=== PATIENT | female | born 1980 | race Caucasian/White ===

== ENCOUNTER 2016-05-08 09:55 | Emergency (ER) | payer SELFPAY ==
[2016-05-08] MEDS ORDERED: Ketorolac 30 MG/ML SDV IVPUSH ONE (10:16)
[2016-05-08] MEDS ORDERED: Ondansetron 4 MG/2 ML SDV IVPUSH ONE (10:16)
[2016-05-08] MEDS ORDERED: Sodium Chloride 0.9% 10 ML Syringe FLUSH PRN (10:16)
[2016-05-08] MEDS ORDERED: Sodium Chloride 0.9% 1,000 ML IV ONE (10:16)
[2016-05-08] MEDS ORDERED: Sodium Chloride 0.9% 2.5 ML Syringe FLUSH PRN (10:16)
[2016-05-08] MEDS ORDERED: Famotidine 20 MG/2 ML SDV IVPUSH ONE (10:16)
--- NOTE | 2016-05-08 10:20 | EDM.PDOC ---
ED HPI GENERAL MEDICAL PROBLEM - General Chief Complaint: Gastrointestinal Problem Stated Complaint: THROWING UP Time Seen by Provider: 05/08/16 10:06 - History of Present Illness INITIAL COMMENTS - FREE TEXT/NARRATIVE: HISTORY AND PHYSICAL: History of present illness: The patient is a 35-year-old female with no stated medical problems who presents with a one-month history of subjective fever chills bodyaches diarrhea and over the last one week has developed a cough with frothy sputum and posttussive vomiting with nausea. The patient has a primary care physician, Dr. Wells, but she has not seen him because of lack of insurance and money to pay for the visit. She denies any recent travel or new food exposures and did not get her influenza shot. She does not feel short of breath or chest pain but she does complain of profound bodyaches and pains throughout everywhere in her body. She has felt lightheaded intermittently and has been trying to hydrate but is mostly been drinking tea. She doesn't have specific abdominal pain but it 's more of a crampy-like sensation which comes and goes. SHe says her urine is very dark in color but there is no burning or pain or hematuria. Stools have been anywhere from 5-10 a day they're watery but did not black or bloody. Review of systems: As per history of present illness and below otherwise all systems reviewed and negative. Past medical history: As per history of present illness and as reviewed below otherwise noncontributory. Surgical history: As per history of present illness and as reviewed below otherwise noncontributory. Social history: No reported history of drug or alcohol abuse. Family history: As per history of present illness and as reviewed below otherwise noncontributory. Physical exam: General: Well-developed overweight female who is nontoxic and vital signs have been reviewed by me. HEENT: Atraumatic, normocephalic, pupils reactive, negative for conjunctival pallor or scleral icterus, mucous membranes tacky, throat clear, neck supple, nontender, trachea midline. Lungs: Clear to auscultation, breath sounds equal bilaterally, chest nontender. Slightly diminished in the bases but no work or breathing wheezing or stridor Heart: S1S2, regular rhythm and slightly tachycardic on my evaluation, negative for clicks, rubs, or JVD. Abdomen: Soft, nondistended, nontender. Negative for masses or hepatosplenomegaly. Negative for costovertebral tenderness. Pelvis: Stable nontender. Genitourinary: Deferred. Rectal: Deferred. Extremities: Atraumatic, negative for cords or calf pain. Neurovascular unremarkable. Neuro: Awake, alert, oriented. Cranial nerves II through XII unremarkable. Cerebellum unremarkable. Motor and sensory unremarkable throughout. Exam nonfocal. Diagnostics: CBC CMP UA urine culture if indicated influenza swab Monospot chest x-ray stool for culture Therapeutics: IV fluids Zofran Toradol Pepcid Please note that the patient is currently on her menstrual cycle which would explain the blood in her UA. All testing results were discussed with the patient and family at bedside and I strongly advise follow up with Dr. wells as etiology of her symptoms is unclear. I will give her an albuterol for the bronchitis and she feels better after IV fluids Impression: Bronchitis, generalized weakness and malaise etiology unclear, diarrhea Definitive disposition and diagnosis as appropriate pending reevaluation and review of above. - Related Data Allergies Allergy/AdvReac Type Severity Reaction Status Date / Time Fish Containing Products Allergy Anaphylactic Verified 05/08/16 10:05 Shock Latex, Natural Rubber Allergy Rash Verified 05/08/16 10:05 mushroom Allergy Airway Verified 05/08/16 10:05 Tightness onion Allergy Hives Verified 05/08/16 10:05 Home Meds: Home Meds . 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: Neurological History: Reports: Headaches, chronic Endocrine/Metabolic History: Reports: Obesity/BMI 30+ - Infectious Disease History Infectious Disease History: Reports: Chicken pox - Past Surgical History HEENT Surgical History: Reports: Adenoidectomy, Naso-sinus surgery, Tonsillectomy GI Surgical History: Reports: Cholecystectomy Female Surgical History: Reports: Tubal ligation Musculoskeletal Surgical History: Reports: Arthroscopic knee Social & Family History - Family History Family Medical History: Noncontributory - Tobacco Use Smoking Status *Q: Current Every Day Smoker Years of Tobacco use: 20 Packs/Tins Daily: 0.3 - Recreational Drug Use Recreational Drug Use: Yes Drug Use in Last 12 Months: Yes Recreational Drug Type: Reports: Marijuana/Hashish Recreational Drug Use Frequency: Socially Recreational Drug Last Use: 6 months ago - Living Situation & Occupation Living situation: Reports: (Has a .) 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 ED EXAM, GENERAL - Physical Exam Exam: See Below (See dictation) Course - Vital Signs Last Recorded V/S: Last Vital Signs Temp 36.2 C 05/08/16 10:03 Pulse 117 H 05/08/16 10:03 Resp 16 05/08/16 10:03 BP 123/84 05/08/16 10:03 Pulse Ox 93 L 05/08/16 10:03 - Orders/Labs/Meds Orders: Active Orders 24 hr Category Date Time Status CULTURE STOOL + CAMPY+SHIGATOX [RM] Stat Lab 05/08/16 10:45 Results Sodium Chloride 0.9% [Saline Flush] Med 05/08/16 10:16 Active 10 ml FLUSH ASDIRECTED PRN Sodium Chloride 0.9% [Saline Flush] Med 05/08/16 10:16 Active 2.5 ml FLUSH ASDIRECTED PRN Saline Lock Insert [OM.PC] Stat Oth 05/08/16 10:15 Ordered Medication Orders Sodium Chloride (Saline Flush) 10 ml FLUSH ASDIRECTED PRN PRN Reason: Keep Vein Open Sodium Chloride (Saline Flush) 2.5 ml FLUSH ASDIRECTED PRN PRN Reason: Keep Vein Open Labs: Laboratory Tests 05/08/16 05/08/16 05/08/16 Range/Units 10:20 10:25 10:25 WBC 5.58 (4.0-11.0) K/uL RBC 5.55 (4.30-5.90) M/uL Hgb 15.1 (12.0-16.0) g/dL Hct 46.7 H (36.0-46.0) % MCV 84.1 (80.0-98.0) fL MCH 27.2 (27.0-32.0) pg MCHC 32.3 (31.0-37.0) g/dL RDW Std Deviation 39.9 (28.0-62.0) fl RDW Coeff of Michael 13 (11.0-15.0) % Plt Count 232 (150-400) K/uL MPV 10.20 (7.40-12.00) fL Neut % (Auto) 54.0 (48.0-80.0) % Lymph % (Auto) 32.8 (16.0-40.0) % [place] % (Auto) 12.4 (0.0-15.0) % Eos % (Auto) 0.4 (0.0-7.0) % Baso % (Auto) 0.4 (0.0-1.5) % Neut # 3.0 (1.4-5.7) K/uL Lymph # 1.8 (0.6-2.4) K/uL [place] # 0.7 (0.0-0.8) K/uL Eos # 0.0 (0.0-0.7) K/uL Baso # 0.0 (0.0-0.1) K/uL Nucleated RBC % 0.0 /100WBC Nucleated RBCs # 0 K/uL Sodium 139 (136-146) mmol/L Potassium 3.3 L (3.5-5.1) mmol/L Chloride 104 (98-110) mmol/L Carbon Dioxide 24 (21-31) mmol/L BUN 12 (6.0-23.0) mg/dL Creatinine 1.1 (0.6-1.5) mg/dL Est Cr Clr Drug Dosing 77.19 mL/min Estimated GFR (MDRD) 56.5 ml/min Glucose 98 (60-110) mg/dL Calcium 8.8 (8.8-10.8) mg/dL Total Bilirubin 0.7 (0.1-1.5) mg/dL AST 21 (5-40) IU/L ALT 19 (8-54) IU/L Alkaline Phosphatase 47 (40-150) Total Protein 8.0 (6.0-8.0) g/dL Albumin 4.2 (3.5-5.0) g/dL Globulin 3.8 H (2.0-3.5) g/dL Albumin/Globulin Ratio 1.1 L (1.3-2.8) Urine Color YELLOW Urine Appearance HAZY Urine pH 6.0 (5.0-8.0) Ur Specific [place] 1.025 (1.001-1.035) Urine Protein 100 (NEGATIVE) mg/dL Urine Glucose (UA) NEGATIVE (NEGATIVE) mg/dL Urine Ketones TRACE H (NEGATIVE) mg/dL Urine Occult Blood LARGE H (NEGATIVE) Urine Nitrite NEGATIVE (NEGATIVE) Urine Bilirubin SMALL H (NEGATIVE) Urine Ictotest NEGATIVE Urine Urobilinogen 1.0 (<2.0) EU/dL Ur Leukocyte Esterase NEGATIVE (NEGATIVE) Urine RBC 6-10 (0-2/HPF) Urine WBC 1-3 (0-5/HPF) Ur Epithelial Cells FEW (NONE-FEW) Amorphous Sediment FEW (NEGATIVE) Urine Bacteria FEW (NEGATIVE) Urine Mucus FEW (NONE-MOD) Monoscreen (NEG) 05/08/16 Range/Units 10:25 WBC (4.0-11.0) K/uL RBC (4.30-5.90) M/uL Hgb (12.0-16.0) g/dL Hct (36.0-46.0) % MCV (80.0-98.0) fL MCH (27.0-32.0) pg MCHC (31.0-37.0) g/dL RDW Std Deviation (28.0-62.0) fl RDW Coeff of Michael (11.0-15.0) % Plt Count (150-400) K/uL MPV (7.40-12.00) fL Neut % (Auto) (48.0-80.0) % Lymph % (Auto) (16.0-40.0) % [place] % (Auto) (0.0-15.0) % Eos % (Auto) (0.0-7.0) % Baso % (Auto) (0.0-1.5) % Neut # (1.4-5.7) K/uL Lymph # (0.6-2.4) K/uL [place] # (0.0-0.8) K/uL Eos # (0.0-0.7) K/uL Baso # (0.0-0.1) K/uL Nucleated RBC % /100WBC Nucleated RBCs # K/uL Sodium (136-146) mmol/L Potassium (3.5-5.1) mmol/L Chloride (98-110) mmol/L Carbon Dioxide (21-31) mmol/L BUN (6.0-23.0) mg/dL Creatinine (0.6-1.5) mg/dL Est Cr Clr Drug Dosing mL/min Estimated GFR (MDRD) ml/min Glucose (60-110) mg/dL Calcium (8.8-10.8) mg/dL Total Bilirubin (0.1-1.5) mg/dL AST (5-40) IU/L ALT (8-54) IU/L Alkaline Phosphatase (40-150) Total Protein (6.0-8.0) g/dL Albumin (3.5-5.0) g/dL Globulin (2.0-3.5) g/dL Albumin/Globulin Ratio (1.3-2.8) Urine Color Urine Appearance Urine pH (5.0-8.0) Ur Specific [place] (1.001-1.035) Urine Protein (NEGATIVE) mg/dL Urine Glucose (UA) (NEGATIVE) mg/dL Urine Ketones (NEGATIVE) mg/dL Urine Occult Blood (NEGATIVE) Urine Nitrite (NEGATIVE) Urine Bilirubin (NEGATIVE) Urine Ictotest Urine Urobilinogen (<2.0) EU/dL Ur Leukocyte Esterase (NEGATIVE) Urine RBC (0-2/HPF) Urine WBC (0-5/HPF) Ur Epithelial Cells (NONE-FEW) Amorphous Sediment (NEGATIVE) Urine Bacteria (NEGATIVE) Urine Mucus (NONE-MOD) Monoscreen NEGATIVE (NEG) Meds: Medications Generic Name Dose Route Start Last Admin Trade Name Freq PRN Reason Stop Dose Admin Sodium Chloride 10 ml 05/08/16 10:16 Saline Flush FLUSH ASDIRECTED PRN Keep Vein Open Sodium Chloride 2.5 ml 05/08/16 10:16 Saline Flush FLUSH ASDIRECTED PRN Keep Vein Open Discontinued Medications Generic Name Dose Route Start Last Admin Trade Name Sparkle PRN Reason Stop Dose Admin Famotidine 20 mg 05/08/16 10:16 05/08/16 10:33 Pepcid IVPUSH 05/08/16 10:17 20 mg ONETIME ONE Administration Sodium Chloride 1,000 mls @ 999 mls/hr 05/08/16 10:16 05/08/16 10:33 Normal Saline IV 05/08/16 11:16 999 mls/hr STAT ONE Administration Ketorolac Tromethamine 30 mg 05/08/16 10:16 05/08/16 10:35 Toradol IVPUSH 05/08/16 10:17 30 mg ONETIME ONE Administration Ondansetron HCl 4 mg 05/08/16 10:16 05/08/16 10:36 Zofran IVPUSH 05/08/16 10:17 4 mg ONETIME ONE Administration Departure - Departure Time of Disposition: 12:32 Disposition: Home, Self-Care 01 Condition: good Clinical Impression: Diarrhea, Bronchitis Referrals: PCP,None [Primary Care Provider] - Forms: ED Department Discharge Additional Instructions: The following information is given to patients seen in the emergency department who are being discharged to home. This information is to outline your options for follow-up care. We provide all patients seen in our emergency department with a follow-up referral. The need for follow-up, as well as the timing and circumstances, are variable depending upon the specifics of your emergency department visit. If you don't have a primary care physician on staff, we will provide you with a referral. We always advise you to contact your personal physician following an emergency department visit to inform them of the circumstance of the visit and for follow-up with them and/or the need for any referrals to a consulting specialist. The emergency department will also refer you to a specialist when appropriate. This referral assures that you have the opportunity for followup care with a specialist. All of these measure are taken in an effort to provide you with optimal care, which includes your followup. Under all circumstances we always encourage you to contact your private physician who remains a resource for coordinating your care. When calling for followup care, please make the office aware that this follow-up is from your recent emergency room visit. If for any reason you are refused follow-up, please contact the [facility] emergency department at and ask to speak to the emergency department charge nurse. [facility] Primary care- Internal Medicine and Family [address] [address] Please use the inhaler that you have been given as needed and push over-the- counter fluids, hydration, avoid caffeinated products and the more potassium rich foods. Please call and followup with your provider in the clinic as we discussed in the next few days and return to ER as needed and as discussed. You can also take [id number] products to help stop your diarrhea - My Orders Last 24 Hours: My Active Orders 05/08/16 10:15 Saline Lock Insert [OM.PC] Stat 05/08/16 10:16 Sodium Chloride 0.9% [Saline Flush] 10 ml FLUSH ASDIRECTED PRN Sodium Chloride 0.9% [Saline Flush] 2.5 ml FLUSH ASDIRECTED PRN 05/08/16 10:45 CULTURE STOOL + CAMPY+SHIGATOX [RM] Stat - Assessment/Plan Last 24 Hours: My Active Orders 05/08/16 10:15 Saline Lock Insert [OM.PC] Stat 05/08/16 10:16 Sodium Chloride 0.9% [Saline Flush] 10 ml FLUSH ASDIRECTED PRN Sodium Chloride 0.9% [Saline Flush] 2.5 ml FLUSH ASDIRECTED PRN 05/08/16 10:45 CULTURE STOOL + CAMPY+SHIGATOX [RM] Stat
--- NOTE | 2016-05-08 11:03 | CR ---
EXAMINATION: Two-view chest (PA and Lateral views). HISTORY: Shortness of breath. FINDINGS: The trachea is midline. The cardiomediastinal silhouette is within normal limits. No pulmonary infil trates, effusions or pneumothorax. Osseous structures appear unremarkable. IMPRESSION: No acute cardiopulmonary process.
[2016-05-08 13:49] VITALS: BP 120/70
== END 2016-05-08 12:51 | disposition home or self-care (01) ==
LOC: MW.ED 09:55
DX: R19.7 Diarrhea, unspecified (principal); J40 Bronchitis, not specified as acute or chronic; Z79.899 Other long term (current) drug therapy; Z98.890 Other specified postprocedural states; F17.210 Nicotine dependence, cigarettes, uncomplicated
CPT/HCPCS: 71020; 80053; 81001; 85025; 86308; 87046; 87804; 87899; 96361; 96374; 96375; 99284; J1885; J2405; J7040

== ENCOUNTER 2017-01-09 18:22 | Emergency (ER) | payer SELFPAY ==
[2017-01-09] MEDS ORDERED: methylPREDNISolone Sodium Succinate 125 MG/2 ML SDV IM ONE (18:37)
[2017-01-09] MEDS ORDERED: diphenhydrAMINE 50 MG/ML SDV IM ONE (18:37)
[2017-01-09] MEDS ORDERED: EPINEPHrine 1 MG/ML SDV IM ONE (18:37)
--- NOTE | 2017-01-09 18:41 | EDM.PDOC ---
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 Past medical history: As per history of present illness and as reviewed below otherwise noncontributory. Surgical history: As per history of present illness and as reviewed below otherwise noncontributory. Social history: No reported history of drug or alcohol abuse. Family history: As per history of present illness and as reviewed below otherwise noncontributory. Physical exam: HEENT: Atraumatic, normocephalic, pupils reactive, negative for conjunctival pallor or scleral icterus, mucous membranes moist, throat clear, neck supple, nontender, trachea midline. Lungs: Clear to auscultation, breath sounds equal bilaterally, chest nontender. Heart: S1S2, regular, negative for clicks, rubs, or JVD. Abdomen: Soft, nondistended, nontender. Negative for masses or hepatosplenomegaly. Negative for costovertebral tenderness. Pelvis: Stable nontender. Genitourinary: Deferred. Rectal: Deferred. Extremities: Atraumatic, negative for cords or calf pain. Neurovascular unremarkable. Neuro: Awake, alert, oriented. Cranial nerves II through XII unremarkable. Cerebellum unremarkable. Motor and sensory unremarkable throughout. Exam nonfocal. Diagnostics: None Therapeutics: Epi 0.3 Solu-Medrol 125 mg Benadryl 50 mg IM Impression: #1 acute allergic reaction (food allergy) Definitive disposition and diagnosis as appropriate pending reevaluation and review of above. - Related Data Allergies Allergy/AdvReac Type Severity Reaction Status Date / Time Fish Containing Products Allergy Anaphylactic Verified 01/09/17 18:29 Shock Latex, Natural Rubber Allergy Rash Verified 01/09/17 18:29 mushroom Allergy Airway Verified 01/09/17 18:29 Tightness onion Allergy Hives Verified 01/09/17 18:29 Home Meds: Home Meds . [No Known Home Meds] 05/08/16 [History] Past Medical History HEENT History: Reports: Sinusitis DEAN History: Reports: Neurological History: Reports: Headaches, Chronic Endocrine/Metabolic History: Reports: Obesity/BMI 30+ - Infectious Disease History Infectious Disease History: Reports: Chicken Pox - Past Surgical History HEENT Surgical History: Reports: Adenoidectomy, Naso-Sinus Surgery, Tonsillectomy GI Surgical History: Reports: Cholecystectomy Female Surgical History: Reports: Tubal Ligation Musculoskeletal Surgical History: Reports: Arthroscopic Knee Social & Family History - Family History Family Medical History: Noncontributory - Tobacco Use Smoking Status *Q: Current Every Day Smoker Years of Tobacco use: 22 Packs/Tins Daily: 1 - Caffeine Use Caffeine Use: Reports: Tea - Recreational Drug Use Recreational Drug Use: No Drug Use in Last 12 Months: Yes Recreational Drug Type: Reports: Marijuana/Hashish Recreational Drug Use Frequency: Socially Recreational Drug Last Use: 6 months ago - Living Situation & Occupation Living situation: Reports: Occupation: Other ED ROS ALLERGIC REACTION - Review of Systems Review Of Systems: ROS reveals no pertinent complaints other than HPI. ED EXAM GENERAL NO PERIP PULSE - Physical Exam Exam: See Below (See dictation) Course - Vital Signs Last Recorded V/S: Last Vital Signs Temp 35.9 C 01/09/17 18:27 Pulse 93 01/09/17 18:27 Resp 18 01/09/17 18:27 BP 154/89 H 01/09/17 18:27 Pulse Ox 98 01/09/17 18:27 - Orders/Labs/Meds Meds: Medications Discontinued Medications Generic Name Dose Route Start Last Admin Trade Name Sparkle PRN Reason Stop Dose Admin Diphenhydramine HCl 50 mg 01/09/17 18:37 Benadryl IM 01/09/17 18:38 ONETIME ONE Epinephrine HCl 0.3 mg 01/09/17 18:37 Adrenalin 1:1000 IM 01/09/17 18:38 ONETIME ONE Methylprednisolone Sodium Succinate 125 mg 01/09/17 18:37 Solu-Medrol IM 01/09/17 18:38 ONETIME ONE Departure - Departure Time of Disposition: 18:40 Disposition: Home, Self-Care 01 Condition: Good Clinical Impression: Allergic reaction - Discharge Information Referrals: PCP,None [Primary Care Provider] - Additional Instructions: The following information is given to patients seen in the emergency department who are being discharged to home. This information is to outline your options for follow-up care. We provide all patients seen in our emergency department with a follow-up referral. The need for follow-up, as well as the timing and circumstances, are variable depending upon the specifics of your emergency department visit. If you don't have a primary care physician on staff, we will provide you with a referral. We always advise you to contact your personal physician following an emergency department visit to inform them of the circumstance of the visit and for follow-up with them and/or the need for any referrals to a consulting specialist. The emergency department will also refer you to a specialist when appropriate. This referral assures that you have the opportunity for followup care with a specialist. All of these measure are taken in an effort to provide you with optimal care, which includes your followup. Under all circumstances we always encourage you to contact your private physician who remains a resource for coordinating your care. When calling for followup care, please make the office aware that this follow-up is from your recent emergency room visit. If for any reason you are refused follow-up, please contact the [facility] emergency department at and asked to speak to the emergency department charge nurse. Medrol Benadryl as directed avoid food allergies as discussed follow-up primary medical doctor 1-2 days return as needed as discussed
[2017-01-09] MEDS ORDERED: EPINEPHrine 1 MG/ML SDV ONE (18:56)
[2017-01-09 23:49] VITALS: BP 124/81
== END 2017-01-09 19:50 | disposition home or self-care (01) ==
LOC: MW.ED 18:22
DX: T78.1XXA Other adverse food reactions, not elsewhere classified, initial encounter (principal); R06.2 Wheezing; F17.210 Nicotine dependence, cigarettes, uncomplicated; Z91.013 Allergy to seafood; Z91.040 Latex allergy status
CPT/HCPCS: 96372; 99283; J0171; J2930

== ENCOUNTER 2023-07-31 07:18 | Emergency (ER) | payer SELFPAY ==
[2023-07-31 07:34] VITALS: BP 133/87
[2023-07-31] MEDS: Amoxicillin/Clavulanate K 875-125 MG Tab PO ONE (08:13)
[2023-07-31 08:23] VITALS: PULSE 80
== END 2023-07-31 08:23 | disposition home or self-care (01) ==
LOC: MW.ED 07:18
DX: K04.7 Periapical abscess without sinus (principal); E66.9 Obesity, unspecified; F17.210 Nicotine dependence, cigarettes, uncomplicated; Z68.43 Body mass index [BMI] 50.0-59.9, adult; Z91.018 Allergy to other foods; Z91.013 Allergy to seafood; Z91.040 Latex allergy status; Z79.899 Other long term (current) drug therapy; Z90.49 Acquired absence of other specified parts of digestive tract; Z75.8 Other problems related to medical facilities and other health care
CPT/HCPCS: 99283; A9270

== ENCOUNTER 2024-01-17 09:59 | Emergency (ER) | payer SELFPAY ==
[2024-01-17 10:07] VITALS: PULSE 75
== END 2024-01-17 11:01 | disposition home or self-care (01) ==
LOC: MW.ED 09:59
DX: K04.7 Periapical abscess without sinus (principal); E66.9 Obesity, unspecified; Z75.8 Other problems related to medical facilities and other health care; Z91.018 Allergy to other foods; Z88.5 Allergy status to narcotic agent; Z91.013 Allergy to seafood; Z91.040 Latex allergy status; Z68.43 Body mass index [BMI] 50.0-59.9, adult
CPT/HCPCS: 99282